=== PATIENT | male | born 1970 | race Caucasian/White ===

== ENCOUNTER 2018-11-11 15:25 | Outpatient (CLI) | payer OTHER ==
[2018-11-11 16:39] LABS: Anion Gap 12 mmol/L (10-20); BUN (Urea Nitrogen) 15 mg/dL (8.9-20.6); Calc. Creatinine Clearance 0 mL/min (70-130); Calcium 9.5 mg/dL (7.8-10.44); Carbon Dioxide 28 mmol/L (22-29); Chloride 98 mmol/L (98-107); Estimated GFR-MDRD 68; Glucose 426 mg/dL (70-105); Sodium 134 mmol/L (136-145)
== END 2018-11-11 15:26 | disposition home or self-care (01) ==
LOC: LABBT 15:25
PROVIDERS: ATTEND Neurological Surgery
DX: Z01.818 Encounter for other preprocedural examination (principal); M54.12 Radiculopathy, cervical region
CPT/HCPCS: 80048; 93005; 93010

== ENCOUNTER 2018-11-12 08:44 | Day surgery (SDC) | payer OTHER ==
[2018-11-11 15:50] VITALS: BMI 31.3
--- NOTE | 2018-11-11 17:50 | HP ---
HISTORY OF PRESENT ILLNESS: Mr. Omer is a pleasant 48-year-old man, presents for evaluation of six-month worth of severe left upper extremity C6 pain, left-sided neck pain. He has actually had a left shoulder surgery as this was the initial cause of pain. He has also had epidural steroid injections and physical therapy with a little bit of results. MRI of the disk from an outside facility reveals left-sided severe foraminal stenosis at C5-6 that would match well with his symptoms. PAST MEDICAL HISTORY: Significant for diabetes, hypertension. PAST SURGICAL HISTORY: Right shoulder, left shoulder. CURRENT MEDICATIONS: Lisinopril, hydrochlorothiazide. ALLERGIES: NO KNOWN DRUG ALLERGIES. PHYSICAL EXAMINATION: The patient is alert and oriented x3. Gait is normal. No ataxia. Upper extremity motor exam reveals full strength bilaterally in all upper extremity movement. Has some mild clumsiness in the left hand. The cervical range of motion is restricted secondary to pain. ASSESSMENT: Cervical disk herniation with radiculopathy. PLAN: Dr. Rivas met with the patient, reviewed imaging, advocated for C5-6 ACDF. He explained to the patient the risks, benefits, and alternatives of the procedure. The patient expressed understanding and elected to move forward with surgery as discussed. I do believe that the patient is mentally competent and capable of making medical decisions for himself and will move forward with surgery as planned. Job ID: [id number]
[2018-11-12] MEDS ORDERED: Thrombin 5000 UNITS/5 ML VIAL ONE (10:04)
[2018-11-12] MEDS ORDERED: Levofloxacin 500 mg/D5W 100 ml Premix Bag ONE (10:12)
[2018-11-12] MEDS ORDERED: Clindamycin/D5W 900 mg/50 ml Premix Bag ONE ×2 (10:12→10:20)
[2018-11-12] MEDS ORDERED: Fentanyl 100 MCG/2 ML VIAL ONE ×2 (10:13→11:42)
[2018-11-12] MEDS ORDERED: Midazolam HCl 2 mg/2 ml Vial ONE (10:13)
[2018-11-12] MEDS ORDERED: HYDROmorphone 2 MG/ML VIAL ONE (11:42)
[2018-11-12] MEDS ORDERED: Tamsulosin HCl 0.4 MG CAP ONE (12:19)
[2018-11-12] MEDS ORDERED: HYDROcodone/Acetaminophen 5/325 mg Tablet ONE (14:47)
[2018-11-12] MEDS ORDERED: Succinylcholine Chloride 20 MG/ML 10 ml SYRINGE FS ONE (21:16)
[2018-11-12] MEDS ORDERED: PHENYLEPHRINE-NS 100 MCG/ML 10 ML SYRINGE ONE (21:16)
[2018-11-12] MEDS ORDERED: PROPOFOL 200 MG/20 ML VIAL ONE (21:16)
[2018-11-12] MEDS ORDERED: Ondansetron PF 4 MG/2 ML Vial ONE (21:16)
[2018-11-12] MEDS ORDERED: Ketorolac Tromethamine 30 MG/ML VIAL ONE (21:16)
[2018-11-12] MEDS ORDERED: Lidocaine 1% PF 5 ML VIAL ONE (21:16)
[2018-11-12] MEDS ORDERED: ePHEDrine/0.9% NaCl/PF SYRINGE 50 mg/10 ml ONE (21:16)
[2018-11-12] MEDS ORDERED: Dexamethasone 20 MG/5 ML VIAL ONE (21:16)
[2018-11-12] MEDS ORDERED: Glycopyrrolate 0.2 MG/ML 5 ML SYRINGE ONE (21:16)
--- NOTE | 2018-11-13 14:03 | OP ---
DATE OF PROCEDURE: 11/12/2018 WRAPPER HAND: Rashel Enriquez PA-C INDICATION: Pain. DIAGNOSIS: Cervical radiculopathy. PROCEDURES PERFORMED: Anterior cervical diskectomy and fusion at C5-C6. ANESTHESIA: General. TECHNIQUE: The patient was brought into the operating room and placed under general anesthesia. He was placed on the table in the supine position. A transverse incision was planned over the right side of the neck. After prepping and draping and after preoperative pause, the incision was created. The underlying platysma muscle was identified and incised. A blunt tissue plane anterior to the sternocleidomastoid muscle was used to gain access to the prevertebral space. After identifying the appropriate level with C-arm fluoroscopy, a diskectomy was performed at C5-C6. After removal of disk material as well as anterior and posterior osteophytes, a 7 mm lordotic PEEK cage packed with allograft and autograft material were placed within the interbody space. An anterior cervical plate was then fashioned to the front of the spine and secured with a total of 4 fixed screws. Midline and lateral structures were inspected and found to be free from significant trauma. The wound was irrigated. Hemostasis was maintained throughout. The wound was then closed in anatomic layers and a pressure dressing was applied. There were no known procedural complications. Job ID: [id number]
== END 2018-11-12 14:50 | disposition home or self-care (01) ==
LOC: SDC 08:44
PROVIDERS: ATTEND Neurological Surgery
PROC: 0RT30ZZ Resection of Cervical Vertebral Disc, Open Approach (ICD-10-PCS; principal; 2018-11-12)
PROC: 0RG10A0 Fusion of Cervical Vertebral Joint with Interbody Fusion Device, Anterior Approach, Anterior Column, Open Approach (ICD-10-PCS; principal; 2018-11-12)
DX: M50.122 Cervical disc disorder at C5-C6 level with radiculopathy (principal); M48.02 Spinal stenosis, cervical region; I10 Essential (primary) hypertension; E11.9 Type 2 diabetes mellitus without complications; Z79.899 Other long term (current) drug therapy; Z88.0 Allergy status to penicillin; Z88.8 Allergy status to other drugs, medicaments and biological substances; Z98.890 Other specified postprocedural states
CPT/HCPCS: 76001; 96374; C1713; C1776; J0131; J1100; J1170; J1885; J1956; J2001; J2250; J2405; J2704; J3010; J3490